=== PATIENT | male | born 1935 | race Caucasian/White ===

== ENCOUNTER 2017-07-21 11:44 | Inpatient (IN) | payer MEDICARE, OTHER ==
[~2017-07-21] VITALS: Ht 177.8 cm; Wt 68.0 kg
[2017-07-21 12:45] VITALS: BP 136/70; BMI 21.5
[2017-07-21] MEDS ORDERED: FUROSEMIDE20 MG PO (13:59)
[2017-07-21] MEDS ORDERED: LOPRESSOR25 MG PO (14:03)
[2017-07-21] MEDS ORDERED: PULMICORT0.5 MG/21 INH (14:08)
[2017-07-21] MEDS ORDERED: BROVANA15 MCG/2 M INH (14:09)
[2017-07-21] MEDS ORDERED: IPRAT-ALBUT 0.5-3 ML UPD (14:09)
[2017-07-21 14:12] LABS: BASOPHILS 0.1 % (0-2); EOSINOPHILS 0.4 % (0-7); HEMATOCRIT 30.6 % (42.0-54.0); HEMOGLOBIN 8.9 g/dL (13.5-17.5); IMMATURE GRANULOCYTES 1.2 % (0-5); LYMPHOCYTES 7.5 % (15-50); MCH 22.5 pg (26.0-34.0); MCHC 29.1 g/dL (31.0-37.0); MCV 77.5 fL (80.0-100.0); MEAN PLATELET VOLUME 10.7 fL (7.4-10.4); MONOCYTES 5.1 % (2-11); NEUTROPHILS 85.7 % (40-80); PLATELET COUNT 192 10x3/uL (130-400); RBC 3.95 10x6/uL (4.20-6.10); RDW 16.6 % (11.5-14.5); WBC 12.1 10x3/uL (4.8-10.8)
[2017-07-21 14:30] LABS: ALBUMIN 2.3 g/dL (3.4-5.0); ALKALINE PHOSPHATASE 51 U/L (46-116); ALT (SGPT) 21 U/L (10-68); BILIRUBIN - TOTAL 0.37 mg/dL (0.2-1.3); CALC OSMOLALITY 278 mosm/kg (275-300); CALCIUM 8.2 mg/dL (8.5-10.1); CARBON DIOXIDE 25.9 mmol/L (21.0-32.0); CHLORIDE - SERUM 106 mmol/L (98-107); CREATININE - SERUM 0.9 mg/dL (0.6-1.3); GLUCOSE 98 mg/dL (74-106); POTASSIUM - SERUM 3.4 mmol/L (3.5-5.1); PROTEIN - SERUM 5.5 g/dL (6.4-8.2); SODIUM 139 mmol/L (136-145); UREA NITROGEN 14 mg/dL (7-18); eGFR NON AFRICAN AMERICAN 86 mL/min (90-120)
[2017-07-21 16:30] VITALS: BP 136/73
[2017-07-21 19:37] LABS: APPEARANCE CLEAR (CLEAR); BILIRUBIN NEGATIVE (NEGATIVE); COLOR YELLOW (YELLOW); GLUCOSE NEGATIVE (NEGATIVE); KETONE NEGATIVE (NEGATIVE); NITRITE NEGATIVE (NEGATIVE); PROTEIN NEGATIVE (NEGATIVE); UROBILINOGEN NORMAL (NORMAL)
[2017-07-21 19:39] LABS: BACTERIA FEW /hpf (NONE SEEN); RED CELLS - URINE OCC /hpf (0-5)
[2017-07-21 23:18] VITALS: BP 109/67
[2017-07-22 02:11] VITALS: BP 102/64
[2017-07-22 04:56] VITALS: BP 124/77
[2017-07-22 05:51] LABS: BASOPHILS 0.1 % (0-2); EOSINOPHILS 0 % (0-7); HEMATOCRIT 27.9 % (42.0-54.0); HEMOGLOBIN 8.3 g/dL (13.5-17.5); IMMATURE GRANULOCYTES 1.2 % (0-5); LYMPHOCYTES 3.1 % (15-50); MCH 22.7 pg (26.0-34.0); MCHC 29.7 g/dL (31.0-37.0); MCV 76.4 fL (80.0-100.0); MEAN PLATELET VOLUME 10.5 fL (7.4-10.4); MONOCYTES 0.8 % (2-11); NEUTROPHILS 94.8 % (40-80); PLATELET COUNT 168 10x3/uL (130-400); RBC 3.65 10x6/uL (4.20-6.10); RDW 16.7 % (11.5-14.5); WBC 9.7 10x3/uL (4.8-10.8)
[2017-07-22 06:17] LABS: ALBUMIN 2.2 g/dL (3.4-5.0); ALKALINE PHOSPHATASE 49 U/L (46-116); BILIRUBIN - TOTAL 0.42 mg/dL (0.2-1.3); CALCIUM 8.3 mg/dL (8.5-10.1); CARBON DIOXIDE 25.6 mmol/L (21.0-32.0); CHLORIDE - SERUM 107 mmol/L (98-107); CREATININE - SERUM 0.7 mg/dL (0.6-1.3); MAGNESIUM - SERUM 1.9 mg/dL (1.8-2.4); PHOSPHOROUS 3.8 mg/dL (2.5-4.9); POTASSIUM - SERUM 3.8 mmol/L (3.5-5.1); PROTEIN - SERUM 5.5 g/dL (6.4-8.2); SODIUM 140 mmol/L (136-145); UREA NITROGEN 13 mg/dL (7-18); eGFR NON AFRICAN AMERICAN > 90 mL/min (90-120)
[2017-07-22 06:19] LABS: ALT (SGPT) 41 U/L (10-68); CALC OSMOLALITY 282 mosm/kg (275-300); GLUCOSE 172 mg/dL (74-106)
[2017-07-22 09:24] VITALS: BP 133/75
[2017-07-22 11:16] VITALS: BMI 21.5
[2017-07-22 12:48] VITALS: BP 130/72
[2017-07-22 16:10] VITALS: BP 150/73
[2017-07-22 22:20] VITALS: BP 155/72
[2017-07-23 01:15] VITALS: BP 146/85
[2017-07-23 05:05] VITALS: BP 149/75
[2017-07-23 07:32] LABS: BASOPHILS 0.1 % (0-2); EOSINOPHILS 0 % (0-7); HEMATOCRIT 28.7 % (42.0-54.0); HEMOGLOBIN 8.5 g/dL (13.5-17.5); IMMATURE GRANULOCYTES 0.6 % (0-5); LYMPHOCYTES 1.7 % (15-50); MCH 22.8 pg (26.0-34.0); MCHC 29.6 g/dL (31.0-37.0); MCV 76.9 fL (80.0-100.0); MONOCYTES 2.6 % (2-11); PLATELET COUNT 167 10x3/uL (130-400); RBC 3.73 10x6/uL (4.20-6.10); RDW 18.1 % (11.5-14.5)
[2017-07-23 07:39] LABS: WBC 15.6 10x3/uL (4.8-10.8)
[2017-07-23 07:45] LABS: ALBUMIN 2.3 g/dL (3.4-5.0); ALKALINE PHOSPHATASE 52 U/L (46-116); BILIRUBIN - TOTAL 0.45 mg/dL (0.2-1.3); CALC OSMOLALITY 285 mosm/kg (275-300); CALCIUM 8.3 mg/dL (8.5-10.1); CARBON DIOXIDE 23.4 mmol/L (21.0-32.0); CHLORIDE - SERUM 110 mmol/L (98-107); CREATININE - SERUM 0.7 mg/dL (0.6-1.3); GLUCOSE 163 mg/dL (74-106); PROTEIN - SERUM 5.2 g/dL (6.4-8.2); SODIUM 142 mmol/L (136-145); UREA NITROGEN 11 mg/dL (7-18); eGFR NON AFRICAN AMERICAN > 90 mL/min (90-120)
[2017-07-23 07:53] LABS: ALT (SGPT) 54 U/L (10-68); POTASSIUM - SERUM 3.2 mmol/L (3.5-5.1)
[2017-07-23 07:56] VITALS: BP 148/82
[2017-07-23 12:01] VITALS: BP 147/81
[2017-07-23 14:09] LABS: IMMUNOGLOBULIN A 59 mg/dL (61-437); IMMUNOGLOBULIN G 626 mg/dL (700-1600)
[2017-07-23 16:22] VITALS: BP 134/83
[2017-07-23 18:09] LABS: APPEARANCE CLEAR (CLEAR); BILIRUBIN NEGATIVE (NEGATIVE); COLOR STRAW (YELLOW); GLUCOSE NEGATIVE (NEGATIVE); KETONE NEGATIVE (NEGATIVE); NITRITE NEGATIVE (NEGATIVE); PH 6.5 (5.0-6.0); PROTEIN NEGATIVE (NEGATIVE); SPECIFIC GRAVITY 1.005 (1.005-1.020); UROBILINOGEN NORMAL (NORMAL)
[2017-07-23 18:11] LABS: BACTERIA FEW /hpf (NONE SEEN); EPITHELIAL CELLS RARE /hpf (0-5); RED CELLS - URINE OCC /hpf (0-5); WHITE CELLS - URINE 0-5 /hpf (0-5)
[2017-07-23 22:26] VITALS: BP 142/74
[2017-07-24 01:39] VITALS: BP 157/93
[2017-07-24 05:18] LABS: BASOPHILS 0.1 % (0-2); EOSINOPHILS 0 % (0-7); HEMATOCRIT 28.7 % (42.0-54.0); HEMOGLOBIN 8.4 g/dL (13.5-17.5); IMMATURE GRANULOCYTES 3.3 % (0-5); LYMPHOCYTES 5.2 % (15-50); MCH 22.8 pg (26.0-34.0); MCHC 29.3 g/dL (31.0-37.0); MEAN PLATELET VOLUME 10.6 fL (7.4-10.4); MONOCYTES 6.3 % (2-11); NEUTROPHILS 85.1 % (40-80); PLATELET COUNT 169 10x3/uL (130-400); RBC 3.68 10x6/uL (4.20-6.10); RDW 19.1 % (11.5-14.5); WBC 12.2 10x3/uL (4.8-10.8)
[2017-07-24 05:25] LABS: ALBUMIN 2.2 g/dL (3.4-5.0); ALKALINE PHOSPHATASE 49 U/L (46-116); ALT (SGPT) 58 U/L (10-68); CALC OSMOLALITY 283 mosm/kg (275-300); CALCIUM 7.9 mg/dL (8.5-10.1); CARBON DIOXIDE 25.5 mmol/L (21.0-32.0); CHLORIDE - SERUM 110 mmol/L (98-107); CREATININE - SERUM 0.8 mg/dL (0.6-1.3); POTASSIUM - SERUM 3.1 mmol/L (3.5-5.1); PROTEIN - SERUM 5.3 g/dL (6.4-8.2); SODIUM 143 mmol/L (136-145); UREA NITROGEN 11 mg/dL (7-18); eGFR NON AFRICAN AMERICAN > 90 mL/min (90-120)
[2017-07-24 05:36] LABS: GLUCOSE 90 mg/dL (74-106)
[2017-07-24 08:37] VITALS: BP 142/75
[2017-07-24 11:47] VITALS: BP 128/76
[2017-07-24 15:47] VITALS: Ht 177.8 cm; Wt 68.0 kg
[2017-07-24 15:50] VITALS: BP 122/78
[2017-07-24 22:21] VITALS: BP 130/75
[2017-07-25 00:56] VITALS: BP 134/74
[2017-07-25 05:20] VITALS: BP 153/66
[2017-07-25 05:58] LABS: BASOPHILS 0.1 % (0-2); EOSINOPHILS 0 % (0-7); HEMATOCRIT 29.1 % (42.0-54.0); HEMOGLOBIN 8.5 g/dL (13.5-17.5); IMMATURE GRANULOCYTES 5.1 % (0-5); LYMPHOCYTES 11.1 % (15-50); MCH 23.2 pg (26.0-34.0); MCHC 29.2 g/dL (31.0-37.0); MCV 79.5 fL (80.0-100.0); MEAN PLATELET VOLUME 10.6 fL (7.4-10.4); MONOCYTES 8.8 % (2-11); NEUTROPHILS 74.9 % (40-80); PLATELET COUNT 138 10x3/uL (130-400); RBC 3.66 10x6/uL (4.20-6.10); RDW 19.5 % (11.5-14.5)
[2017-07-25 06:04] LABS: WBC 7.9 10x3/uL (4.8-10.8)
[2017-07-25 06:27] LABS: ALBUMIN 2.2 g/dL (3.4-5.0); ALKALINE PHOSPHATASE 48 U/L (46-116); ALT (SGPT) 46 U/L (10-68); BILIRUBIN - TOTAL 0.55 mg/dL (0.2-1.3); CALC OSMOLALITY 285 mosm/kg (275-300); CALCIUM 8.3 mg/dL (8.5-10.1); CARBON DIOXIDE 28.5 mmol/L (21.0-32.0); CHLORIDE - SERUM 110 mmol/L (98-107); CREATININE - SERUM 0.8 mg/dL (0.6-1.3); GLUCOSE 87 mg/dL (74-106); POTASSIUM - SERUM 3.4 mmol/L (3.5-5.1); PROTEIN - SERUM 5.3 g/dL (6.4-8.2); SODIUM 144 mmol/L (136-145); UREA NITROGEN 12 mg/dL (7-18); eGFR NON AFRICAN AMERICAN > 90 mL/min (90-120)
[2017-07-25 08:59] VITALS: BP 101/65
[2017-07-25 17:13] VITALS: BP 123/78
[2017-07-25 22:12] VITALS: BP 112/62
[2017-07-26 01:36] VITALS: BP 116/64
[2017-07-26 04:37] LABS: BASOPHILS 0.1 % (0-2); EOSINOPHILS 0.1 % (0-7); HEMATOCRIT 30.7 % (42.0-54.0); IMMATURE GRANULOCYTES 3.6 % (0-5); LYMPHOCYTES 7.8 % (15-50); MCH 23.4 pg (26.0-34.0); MCHC 29.3 g/dL (31.0-37.0); MCV 79.9 fL (80.0-100.0); MEAN PLATELET VOLUME 10.9 fL (7.4-10.4); MONOCYTES 7.8 % (2-11); NEUTROPHILS 80.6 % (40-80); PLATELET COUNT 137 10x3/uL (130-400); RBC 3.84 10x6/uL (4.20-6.10); RDW 20.5 % (11.5-14.5); WBC 7.3 10x3/uL (4.8-10.8)
[2017-07-26 04:46] VITALS: BP 141/73
[2017-07-26 04:56] LABS: ALBUMIN 2.2 g/dL (3.4-5.0); ALKALINE PHOSPHATASE 54 U/L (46-116); ALT (SGPT) 40 U/L (10-68); CALC OSMOLALITY 278 mosm/kg (275-300); CALCIUM 8.3 mg/dL (8.5-10.1); CHLORIDE - SERUM 106 mmol/L (98-107); CREATININE - SERUM 0.7 mg/dL (0.6-1.3); GLUCOSE 94 mg/dL (74-106); POTASSIUM - SERUM 3.5 mmol/L (3.5-5.1); PROTEIN - SERUM 5.4 g/dL (6.4-8.2); SODIUM 140 mmol/L (136-145); UREA NITROGEN 13 mg/dL (7-18); eGFR NON AFRICAN AMERICAN > 90 mL/min (90-120)
[2017-07-26 10:33] VITALS: BP 130/70
[2017-07-26 11:35] VITALS: BP 136/74
[2017-07-26 16:18] VITALS: BP 144/57
[2017-07-26 23:49] VITALS: BP 121/69
[2017-07-27 05:25] VITALS: BP 142/78
[2017-07-27 09:15] LABS: BASOPHILS 0.1 % (0-2); EOSINOPHILS 0.2 % (0-7); HEMATOCRIT 32.8 % (42.0-54.0); HEMOGLOBIN 9.7 g/dL (13.5-17.5); IMMATURE GRANULOCYTES 1.7 % (0-5); LYMPHOCYTES 5.9 % (15-50); MCH 23.8 pg (26.0-34.0); MCHC 29.6 g/dL (31.0-37.0); MCV 80.4 fL (80.0-100.0); MEAN PLATELET VOLUME 10.6 fL (7.4-10.4); MONOCYTES 4.9 % (2-11); NEUTROPHILS 87.2 % (40-80); PLATELET COUNT 114 10x3/uL (130-400); RBC 4.08 10x6/uL (4.20-6.10); RDW 22.1 % (11.5-14.5); WBC 8.9 10x3/uL (4.8-10.8)
[2017-07-27 09:27] VITALS: BP 120/90
[2017-07-27 09:32] LABS: ALBUMIN 2.4 g/dL (3.4-5.0); ALKALINE PHOSPHATASE 52 U/L (46-116); ALT (SGPT) 37 U/L (10-68); CALC OSMOLALITY 282 mosm/kg (275-300); CHLORIDE - SERUM 107 mmol/L (98-107); CREATININE - SERUM 0.7 mg/dL (0.6-1.3); GLUCOSE 94 mg/dL (74-106); PROTEIN - SERUM 5.5 g/dL (6.4-8.2); SODIUM 142 mmol/L (136-145); UREA NITROGEN 12 mg/dL (7-18); eGFR NON AFRICAN AMERICAN > 90 mL/min (90-120)
[2017-07-27 10:10] LABS: POTASSIUM - SERUM 2.8 mmol/L (3.5-5.1)
[2017-07-27 11:34] VITALS: BP 120/78
[2017-07-27 12:26] VITALS: BP 120/78
[2017-07-27 15:42] VITALS: BP 118/67
[2017-07-27 21:08] LABS: IMMUNOGLOBULIN E 26 IU/mL (0-100)
[2017-07-27 23:10] VITALS: BP 109/67
[2017-07-28 02:43] VITALS: BP 138/80
[2017-07-28 05:13] VITALS: BP 131/79
[2017-07-28 05:17] LABS: BASOPHILS 0 % (0-2); EOSINOPHILS 0 % (0-7); HEMATOCRIT 32.6 % (42.0-54.0); HEMOGLOBIN 9.8 g/dL (13.5-17.5); IMMATURE GRANULOCYTES 1.6 % (0-5); LYMPHOCYTES 5.7 % (15-50); MCHC 30.1 g/dL (31.0-37.0); MCV 79.9 fL (80.0-100.0); MEAN PLATELET VOLUME 10.8 fL (7.4-10.4); MONOCYTES 5.6 % (2-11); NEUTROPHILS 87.1 % (40-80); PLATELET COUNT 136 10x3/uL (130-400); RBC 4.08 10x6/uL (4.20-6.10); RDW 22.5 % (11.5-14.5); WBC 7.6 10x3/uL (4.8-10.8)
[2017-07-28 05:54] LABS: ALBUMIN 2.4 g/dL (3.4-5.0); ALKALINE PHOSPHATASE 50 U/L (46-116); ALT (SGPT) 33 U/L (10-68); CALC OSMOLALITY 279 mosm/kg (275-300); CARBON DIOXIDE 24.7 mmol/L (21.0-32.0); CHLORIDE - SERUM 107 mmol/L (98-107); CREATININE - SERUM 0.6 mg/dL (0.6-1.3); GLUCOSE 95 mg/dL (74-106); PROTEIN - SERUM 5.5 g/dL (6.4-8.2); SODIUM 141 mmol/L (136-145); UREA NITROGEN 11 mg/dL (7-18); eGFR NON AFRICAN AMERICAN > 90 mL/min (90-120)
[2017-07-28 05:59] LABS: POTASSIUM - SERUM 3.3 mmol/L (3.5-5.1)
[2017-07-28 10:02] VITALS: BP 141/69
[2017-07-28] MEDS ORDERED: FLOMAX0.4 MG PO (10:35)
[2017-07-28] MEDS ORDERED: MEGACE40 MG PO (10:35)
[2017-07-28] MEDS ORDERED: ALBUTEROL2.5 MG/3 M UPD (10:35)
[2017-07-28] MEDS ORDERED: K-DUR20 MEQ PO (10:37)
[2017-07-28] MEDS ORDERED: BENZONATATE200 MG PO (10:37)
[2017-07-28] MEDS ORDERED: DALIRESP500 MCG PO (10:37)
[2017-07-28] MEDS ORDERED: MUCINEX DM ER1 EAC1 PO (10:38)
[2017-07-28] MEDS ORDERED: SINGULAIR10 MG PO (10:38)
[2017-07-28] MEDS ORDERED: REGLAN INJ10 MG/2 ML PO (10:39)
[2017-07-28] MEDS ORDERED: PREDNISONE20 MG PO (10:41)
[2017-07-28] MEDS ORDERED: MIRALAX17 GM PO (10:41)
[2017-07-28] MEDS ORDERED: PROSCAR5 MG PO (10:42)
[2017-07-28] MEDS ORDERED: VITAMIN B-1000 MCG/M PO (10:42)
[2017-07-28 12:39] VITALS: BP 146/64
[2017-07-28 16:30] VITALS: BP 129/78
== END 2017-07-28 17:47 | DRG 190 ==
LOC: D.MS 11:44
PROVIDERS: Internal Medicine Pulmonary Disease; Legal Medicine
DX: J44.0 Chronic obstructive pulmonary disease with (acute) lower respiratory infection (principal); J10.00 Influenza due to other identified influenza virus with unspecified type of pneumonia; N13.8 Other obstructive and reflux uropathy; N39.0 Urinary tract infection, site not specified; K92.1 Melena; J98.11 Atelectasis; J44.1 Chronic obstructive pulmonary disease with (acute) exacerbation; I25.10 Atherosclerotic heart disease of native coronary artery without angina pectoris; D50.9 Iron deficiency anemia, unspecified; N40.1 Benign prostatic hyperplasia with lower urinary tract symptoms; J84.10 Pulmonary fibrosis, unspecified; K44.9 Diaphragmatic hernia without obstruction or gangrene; G47.33 Obstructive sleep apnea (adult) (pediatric); E87.6 Hypokalemia; B96.5 Pseudomonas (aeruginosa) (mallei) (pseudomallei) as the cause of diseases classified elsewhere; E88.09 Other disorders of plasma-protein metabolism, not elsewhere classified; G72.89 Other specified myopathies

== ENCOUNTER 2017-07-28 19:22 | Inpatient (IN) | payer MEDICARE, OTHER ==
[~2017-07-28] VITALS: Ht 177.8 cm; Wt 62.0 kg
--- NOTE | ~2017-07-28 | RHP ---
PATIENT: DIANA SOLARES MEDICAL RECORD: [id number] ACCOUNT: [id number] LOCATION:[facility].[id number] : 37 ADMISSION DATE: 07/28/17 REHABILITATION HISTORY AND PHYSICAL EXAMINATION POST ADMISSION PHYSICIAN EXAMINATION DATE OF ADMISSION: 07/28/2017. ADMITTING DIAGNOSIS: Disuse myopathy. HISTORY OF PRESENT ILLNESS: The patient is a 81-year-old gentleman who is admitted to the inpatient rehab with neurological disorder, disuse myopathy. He has got a history of iron-deficiency anemia and has received 2 dosages of IV iron this week on his acute admit, he was hospitalized week before prior to this with possible GIB. He was a direct admit from the clinic due to increased shortness of breath, increased flu exposure, and tested positive for flu A. Chest x-ray showed atelectasis or possible pneumonitis, pulmonary was consulted and has been followed through his acute hospital stay. He has CHF, coronary artery disease. He has had coronary artery bypass grafting, COPD, skin cancer, renal lithiasis, and TIA. He presented with shortness of breath, history of smoking, quit 25 years ago. He has got COPD for the last 3-4 years, he has been hospitalized last 3-4 months on and off since March secondary to bronchitis or pneumonia. He came in with a 1-week history of progressive shortness of breath, fever, chills. The patient has increased wheezing despite being on nebulizer, dyspnea on activity, and unable to do activities of daily living. He was having some urinary retention, been seen by the urology and has treating his BPH with medication. 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 He has a surgery consult for hiatal hernia, but decided to be addressed at a later date. CT of his abdomen and pelvis on 07/23/2017 showed bilateral nonobstructing renal stones, large prostate, left inguinal hernia, left hydrocele. Chest x-ray shows right lower lobe pneumonia. He had come in and out for catheterization. He is noted to have resistance in the prostate region. His PVR was greater than 400 mL. He has developed some diffuse myopathy secondary to hospitalization. He has proximal muscle weakness noted with difficulty rising from bed to chair. Currently, he was independent with his mobility, ADLs and was still driving prior to this recent hospitalization. He is currently set up from max assist with ADLs, moderate to max assist to total assist for mobility and he and his son would like to have him return home. COMORBIDITIES: In this patient include coronary artery disease, COPD, anemia, hypokalemia, hypoalbuminemia, leukocytosis, influenza, benign prostatic hypertrophy, disuse myopathy, gastroesophageal reflux disease, right lower lobe pneumonia, bronchiectasis, history of CHF, markedly enlarged hiatal hernia, probable obstructive sleep apnea, history of TIA, and difficulty urinating. PAST MEDICAL HISTORY: Significant for TIA, cataract, coronary artery bypass grafting, CHF, COPD, skin cancer, constipation, former tobacco use. PAST SURGICAL HISTORY: Includes coronary bypass grafting and surgery for renal stones. ALLERGIES: No known drug allergies. CURRENT MEDICATIONS: Include Megace 40 mg b.i.d. with meals. He is on Daliresp 500 mcg daily, prednisone he is on a tapering dose, Lasix 20 mg daily, HISTORY AND PHYSICAL [id number] DIANA SOLARES finasteride 5 mg daily, B12 1000 mcg daily, Flomax 0.4 mg at bedtime, MiraLax 17 grams in 8 ounces of water daily, Singulair 10 mg at bedtime, metoprolol 37 mg b.i.d. metoclopramide 5 mg q.6 hours, DuoNeb updrafts as needed, Pulmicort 0.5 mg b.i.d., Tessalon Perles 200 mg t.i.d. p.r.n., Brovana 15 mcg b.i.d., and Ventolin as needed for shortness of breath. HABITS: No current alcohol or tobacco use, quit smoking years ago. FAMILY HISTORY: Noncontributory. SOCIAL HISTORY: The patient hopes to return back to [facility], continue to live and have family members check in on him. REVIEW OF SYSTEMS: GENERAL: He does complain of weakness and fatigue. HEENT: He denies cold, cough, or congestion. CARDIOVASCULAR: He denies chest pain. LUNGS: He does complain of shortness of breath. PHYSICAL EXAMINATION: VITAL SIGNS: Stable, afebrile. GENERAL: Elderly gentleman in no acute distress, alert upon exam. HEENT: Normocephalic and atraumatic. Mucosa moist. NECK: Supple. No lymphadenopathy. LUNGS: Coarse breath sounds bilaterally with decreased breath sounds at the bases. CARDIOVASCULAR: Regular rate and rhythm. ABDOMEN: Benign. EXTREMITIES: No clubbing, cyanosis, or edema. NEUROLOGIC: Intact. LABORATORY DATA: His white count 6.9, H&H 9.9 and 32.7, and platelet count is 140. Sodium 139, potassium 3.4, BUN and creatinine of 14 and 0.6, and blood sugar is noted to be 93. ASSESSMENT: This is a 81-year-old gentleman admitted to the rehab with a working diagnosis of disuse myopathy. The patient has potential to make improvement. We instituted the following multidisciplinary therapies including to, but not limited to physical, occupational, respiratory, speech, nutritional services, prosthetics and orthotics. Given his complex condition and risk for more complications, rehabilitation service services cannot be provided at a lower level of care such as a long term facility. PLAN: 1. Admit to [facility] rehab for intensive inpatient therapy to include the following disciplines: A. Physical therapy to improve gait, all transfer skills and bed mobility to a modified independent level. B. Occupational therapy to improve activities of daily living to a modified independent level. C. Case management to assist with discharge planning and placement options. D. Nutrition to assist with nutritional needs. E. Rehabilitation nursing to assist and monitor the patient's underlying medical conditions and to assist with any type of bowel or bladder management. 2. The patient's current medical care will be continued. HISTORY AND PHYSICAL [id number] DIANA SOLARES 3. The patient will be placed on standard fall precautions. 4. The patient's estimated length of stay is approximately 7-10 days. 5. Discuss this patient during care team staff meeting this week. TRANSINT:[id number] Voice Confirmation ID: [id number] DOCUMENT ID: [id number] BASILIO notes whether there has been none or any medical/functional change since admission: - No change since preadmissino screen. BASILIO attests patient continues to be appropriate for IRF: - Continues to be appropriate. LUCA PUGH MD CC: [id number] DICTATION DATE: 07/29/171211 FUEL INJECTION SERVICER: 07/29/[address] [facility] [address] [place] [address]
[2017-07-28 19:00] VITALS: BP 134/78
[~2017-07-28 19:22] MED LIST: ALBUTEROL2.5 MG/3 M UPD; BENZONATATE200 MG PO; BROVANA15 MCG/2 M INH; DALIRESP500 MCG PO; FLOMAX0.4 MG PO; FUROSEMIDE20 MG PO; IPRAT-ALBUT 0.5-3 ML UPD; K-DUR20 MEQ PO; LOPRESSOR25 MG PO; MEGACE40 MG PO; MIRALAX17 GM PO; MUCINEX DM ER1 EAC1 PO; PREDNISONE20 MG PO; PROSCAR5 MG PO; PULMICORT0.5 MG/21 INH; REGLAN INJ10 MG/2 ML PO; SINGULAIR10 MG PO; VITAMIN B-1000 MCG/M PO
[2017-07-29 02:34] VITALS: BP 134/78; BMI 22.5
[2017-07-29 06:22] LABS: BASOPHILS 0 % (0-2); EOSINOPHILS 0.1 % (0-7); HEMATOCRIT 32.7 % (42.0-54.0); HEMOGLOBIN 9.9 g/dL (13.5-17.5); IMMATURE GRANULOCYTES 1.6 % (0-5); LYMPHOCYTES 6.8 % (15-50); MCH 24.2 pg (26.0-34.0); MCHC 30.3 g/dL (31.0-37.0); MEAN PLATELET VOLUME 10.7 fL (7.4-10.4); MONOCYTES 6.7 % (2-11); NEUTROPHILS 84.8 % (40-80); PLATELET COUNT 140 10x3/uL (130-400); RBC 4.09 10x6/uL (4.20-6.10); RDW 23.2 % (11.5-14.5); WBC 6.9 10x3/uL (4.8-10.8)
[2017-07-29 06:38] LABS: ALBUMIN 2.4 g/dL (3.4-5.0); ALKALINE PHOSPHATASE 45 U/L (46-116); ALT (SGPT) 33 U/L (10-68); BILIRUBIN - TOTAL 0.57 mg/dL (0.2-1.3); CALC OSMOLALITY 278 mosm/kg (275-300); CALCIUM 8.3 mg/dL (8.5-10.1); CARBON DIOXIDE 24.8 mmol/L (21.0-32.0); CHLORIDE - SERUM 105 mmol/L (98-107); CREATININE - SERUM 0.6 mg/dL (0.6-1.3); GLUCOSE 93 mg/dL (74-106); POTASSIUM - SERUM 3.4 mmol/L (3.5-5.1); PROTEIN - SERUM 5.9 g/dL (6.4-8.2); SODIUM 139 mmol/L (136-145); UREA NITROGEN 14 mg/dL (7-18); eGFR NON AFRICAN AMERICAN > 90 mL/min (90-120)
[2017-07-29 08:00] VITALS: BP 141/102
[2017-07-29 14:15] VITALS: Ht 177.8 cm; Wt 62.0 kg
[2017-07-29 19:35] VITALS: BP 129/81
[2017-07-30 09:14] VITALS: BP 134/75
[2017-07-30 20:00] VITALS: BP 137/82
[2017-07-31 03:24] LABS: BASOPHILS 0 % (0-2); EOSINOPHILS 0.4 % (0-7); HEMATOCRIT 34.5 % (42.0-54.0); HEMOGLOBIN 10.5 g/dL (13.5-17.5); IMMATURE GRANULOCYTES 1.3 % (0-5); LYMPHOCYTES 7.2 % (15-50); MCH 24.5 pg (26.0-34.0); MCHC 30.4 g/dL (31.0-37.0); MCV 80.6 fL (80.0-100.0); MEAN PLATELET VOLUME 10.4 fL (7.4-10.4); MONOCYTES 7.4 % (2-11); NEUTROPHILS 83.7 % (40-80); PLATELET COUNT 165 10x3/uL (130-400); RBC 4.28 10x6/uL (4.20-6.10); RDW 23.1 % (11.5-14.5); WBC 8.3 10x3/uL (4.8-10.8)
[2017-07-31 03:32] LABS: CALC OSMOLALITY 274 mosm/kg (275-300); CALCIUM 8.3 mg/dL (8.5-10.1); CARBON DIOXIDE 27.4 mmol/L (21.0-32.0); CHLORIDE - SERUM 103 mmol/L (98-107); CREATININE - SERUM 0.7 mg/dL (0.6-1.3); GLUCOSE 103 mg/dL (74-106); POTASSIUM - SERUM 3.1 mmol/L (3.5-5.1); SODIUM 137 mmol/L (136-145); UREA NITROGEN 16 mg/dL (7-18); eGFR NON AFRICAN AMERICAN > 90 mL/min (90-120)
[2017-07-31 08:00] VITALS: BP 132/61
[2017-07-31 09:04] LABS: PRE-ALBUMIN 23.8 mg/dL (18.0-35.7); PROTEIN - SERUM 5.8 g/dL (6.4-8.2)
[2017-07-31 20:00] VITALS: BP 132/75
[2017-08-01 08:00] VITALS: BP 137/73
[2017-08-01 19:45] VITALS: BP 130/76
[2017-08-02 05:53] LABS: BASOPHILS 0 % (0-2); EOSINOPHILS 0.1 % (0-7); HEMATOCRIT 34.8 % (42.0-54.0); HEMOGLOBIN 10.4 g/dL (13.5-17.5); IMMATURE GRANULOCYTES 1.7 % (0-5); LYMPHOCYTES 8.2 % (15-50); MCH 24.2 pg (26.0-34.0); MCHC 29.9 g/dL (31.0-37.0); MCV 80.9 fL (80.0-100.0); MEAN PLATELET VOLUME 10.8 fL (7.4-10.4); MONOCYTES 9.3 % (2-11); NEUTROPHILS 80.7 % (40-80); PLATELET COUNT 194 10x3/uL (130-400); RDW 24.1 % (11.5-14.5); WBC 7.8 10x3/uL (4.8-10.8)
[2017-08-02 06:19] LABS: CALC OSMOLALITY 279 mosm/kg (275-300); CALCIUM 8.6 mg/dL (8.5-10.1); CARBON DIOXIDE 25.8 mmol/L (21.0-32.0); CHLORIDE - SERUM 105 mmol/L (98-107); CREATININE - SERUM 0.8 mg/dL (0.6-1.3); GLUCOSE 97 mg/dL (74-106); SODIUM 140 mmol/L (136-145); UREA NITROGEN 16 mg/dL (7-18); eGFR NON AFRICAN AMERICAN > 90 mL/min (90-120)
[2017-08-02 08:34] VITALS: BP 121/73
[2017-08-02 20:30] VITALS: BP 133/79
[2017-08-03 08:00] VITALS: BP 122/71
[2017-08-03 21:16] VITALS: BP 120/68
[2017-08-04 08:34] VITALS: BP 113/65
[2017-08-04 11:26] LABS: BASOPHILS 0 % (0-2); EOSINOPHILS 0 % (0-7); HEMATOCRIT 35.8 % (42.0-54.0); HEMOGLOBIN 10.7 g/dL (13.5-17.5); IMMATURE GRANULOCYTES 0.9 % (0-5); LYMPHOCYTES 3.2 % (15-50); MCH 24.7 pg (26.0-34.0); MCHC 29.9 g/dL (31.0-37.0); MCV 82.5 fL (80.0-100.0); MEAN PLATELET VOLUME 10.5 fL (7.4-10.4); MONOCYTES 7.4 % (2-11); NEUTROPHILS 88.5 % (40-80); PLATELET COUNT 161 10x3/uL (130-400); RBC 4.34 10x6/uL (4.20-6.10)
[2017-08-04 11:32] LABS: WBC 10.5 10x3/uL (4.8-10.8)
[2017-08-04 11:33] LABS: CALC OSMOLALITY 289 mosm/kg (275-300); CALCIUM 8.7 mg/dL (8.5-10.1); CARBON DIOXIDE 25.9 mmol/L (21.0-32.0); CHLORIDE - SERUM 107 mmol/L (98-107); CREATININE - SERUM 0.9 mg/dL (0.6-1.3); POTASSIUM - SERUM 3.7 mmol/L (3.5-5.1); SODIUM 142 mmol/L (136-145); UREA NITROGEN 19 mg/dL (7-18); eGFR NON AFRICAN AMERICAN 86 mL/min (90-120)
[2017-08-04 11:34] LABS: GLUCOSE 184 mg/dL (74-106)
[2017-08-04 20:00] VITALS: BP 155/83
[2017-08-05 08:21] LABS: BASOPHILS 0.1 % (0-2); EOSINOPHILS 0 % (0-7); HEMOGLOBIN 11.5 g/dL (13.5-17.5); IMMATURE GRANULOCYTES 1.3 % (0-5); LYMPHOCYTES 6.9 % (15-50); MCH 24.8 pg (26.0-34.0); MCHC 30.3 g/dL (31.0-37.0); MCV 82.1 fL (80.0-100.0); MEAN PLATELET VOLUME 11.1 fL (7.4-10.4); MONOCYTES 7.6 % (2-11); NEUTROPHILS 84.1 % (40-80); PLATELET COUNT 133 10x3/uL (130-400); RBC 4.63 10x6/uL (4.20-6.10); RDW 25.4 % (11.5-14.5); WBC 10.8 10x3/uL (4.8-10.8)
[2017-08-05 08:38] LABS: CALC OSMOLALITY 285 mosm/kg (275-300); CALCIUM 8.9 mg/dL (8.5-10.1); CARBON DIOXIDE 25.1 mmol/L (21.0-32.0); CHLORIDE - SERUM 106 mmol/L (98-107); CREATININE - SERUM 0.7 mg/dL (0.6-1.3); GLUCOSE 108 mg/dL (74-106); POTASSIUM - SERUM 3.8 mmol/L (3.5-5.1); SODIUM 142 mmol/L (136-145); UREA NITROGEN 18 mg/dL (7-18); eGFR NON AFRICAN AMERICAN > 90 mL/min (90-120)
[2017-08-05 14:27] VITALS: BP 118/72
[2017-08-06 00:01] VITALS: BP 129/68
[2017-08-06 08:36] VITALS: BP 115/71
[2017-08-06] MEDS ORDERED: LOVENOX60 MG/0.6 SC (12:57)
== END 2017-08-06 13:32 | disposition short-term general hospital (02) | DRG 91 ==
LOC: D.REHAB 19:22
PROVIDERS: Emergency Medicine
DX: G72.89 Other specified myopathies (principal); J11.00 Influenza due to unidentified influenza virus with unspecified type of pneumonia; J96.21 Acute and chronic respiratory failure with hypoxia; J44.1 Chronic obstructive pulmonary disease with (acute) exacerbation; I25.10 Atherosclerotic heart disease of native coronary artery without angina pectoris; J44.9 Chronic obstructive pulmonary disease, unspecified; D50.9 Iron deficiency anemia, unspecified; E87.6 Hypokalemia; E88.09 Other disorders of plasma-protein metabolism, not elsewhere classified; D72.829 Elevated white blood cell count, unspecified; N40.0 Benign prostatic hyperplasia without lower urinary tract symptoms; K21.9 Gastro-esophageal reflux disease without esophagitis; G47.33 Obstructive sleep apnea (adult) (pediatric); K44.9 Diaphragmatic hernia without obstruction or gangrene; R39.198 Other difficulties with micturition; R00.0 Tachycardia, unspecified

== ENCOUNTER 2017-08-06 12:59 | Inpatient (IN) | payer MEDICARE, OTHER ==
[~2017-08-06 12:59] MED LIST changes: +LOVENOX60 MG/0.6 SC
[2017-08-06 15:00] LABS: ALBUMIN 2.6 g/dL (3.4-5.0); ALKALINE PHOSPHATASE 62 U/L (46-116); ALT (SGPT) 71 U/L (10-68); BASOPHILS 0.2 % (0-2); BILIRUBIN - TOTAL 0.66 mg/dL (0.2-1.3); CALCIUM 8.8 mg/dL (8.5-10.1); CARBON DIOXIDE 24.4 mmol/L (21.0-32.0); CHLORIDE - SERUM 107 mmol/L (98-107); CREATININE - SERUM 0.8 mg/dL (0.6-1.3); EOSINOPHILS 0.1 % (0-7); GLUCOSE 96 mg/dL (74-106); HEMATOCRIT 38.1 % (42.0-54.0); HEMOGLOBIN 11.3 g/dL (13.5-17.5); IMMATURE GRANULOCYTES 0.9 % (0-5); LYMPHOCYTES 6.4 % (15-50); MCH 24.5 pg (26.0-34.0); MCHC 29.7 g/dL (31.0-37.0); MCV 82.6 fL (80.0-100.0); MEAN PLATELET VOLUME 10.7 fL (7.4-10.4); MONOCYTES 6.4 % (2-11); PLATELET COUNT 110 10x3/uL (130-400); PROTEIN - SERUM 6.1 g/dL (6.4-8.2); RBC 4.61 10x6/uL (4.20-6.10); RDW 25.3 % (11.5-14.5); SODIUM 141 mmol/L (136-145); WBC 10.1 10x3/uL (4.8-10.8); eGFR NON AFRICAN AMERICAN > 90 mL/min (90-120)
[2017-08-06 15:06] LABS: CALC OSMOLALITY 284 mosm/kg (275-300); POTASSIUM - SERUM 4.4 mmol/L (3.5-5.1); UREA NITROGEN 23 mg/dL (7-18)
[2017-08-06 23:00] VITALS: BP 114/81
[2017-08-07] VITALS (25 sets, daily range): BP systolic 100–130; BP diastolic 68–88; BMI 20.2
[2017-08-07 03:40] LABS: BASOPHILS 0 % (0-2); EOSINOPHILS 0 % (0-7); HEMATOCRIT 33.5 % (42.0-54.0); HEMOGLOBIN 9.9 g/dL (13.5-17.5); IMMATURE GRANULOCYTES 0.8 % (0-5); LYMPHOCYTES 3.8 % (15-50); MCH 24.4 pg (26.0-34.0); MCHC 29.6 g/dL (31.0-37.0); MCV 82.5 fL (80.0-100.0); MEAN PLATELET VOLUME 11.5 fL (7.4-10.4); MONOCYTES 2.4 % (2-11); PLATELET COUNT 121 10x3/uL (130-400); RBC 4.06 10x6/uL (4.20-6.10); RDW 24.8 % (11.5-14.5); WBC 8.5 10x3/uL (4.8-10.8)
[2017-08-07 03:59] LABS: ALBUMIN 2.2 g/dL (3.4-5.0); ALKALINE PHOSPHATASE 49 U/L (46-116); ALT (SGPT) 57 U/L (10-68); BILIRUBIN - TOTAL 0.44 mg/dL (0.2-1.3); CALCIUM 8.4 mg/dL (8.5-10.1); CARBON DIOXIDE 25.2 mmol/L (21.0-32.0); CHLORIDE - SERUM 107 mmol/L (98-107); CREATININE - SERUM 0.7 mg/dL (0.6-1.3); MAGNESIUM - SERUM 1.8 mg/dL (1.8-2.4); PHOSPHOROUS 3.9 mg/dL (2.5-4.9); POTASSIUM - SERUM 4.5 mmol/L (3.5-5.1); PROTEIN - SERUM 5.9 g/dL (6.4-8.2); SODIUM 140 mmol/L (136-145); UREA NITROGEN 24 mg/dL (7-18); eGFR NON AFRICAN AMERICAN > 90 mL/min (90-120)
[2017-08-07 04:00] LABS: CALC OSMOLALITY 285 mosm/kg (275-300); GLUCOSE 155 mg/dL (74-106)
[2017-08-08] VITALS (24 sets, daily range): BP systolic 98–131; BP diastolic 65–83
[2017-08-08 11:26] LABS: HEMATOCRIT 31.8 % (42.0-54.0); HEMOGLOBIN 9.6 g/dL (13.5-17.5); LYMPHOCYTES 3.3 % (15-50); MCH 25.1 pg (26.0-34.0); MCHC 30.2 g/dL (31.0-37.0); MEAN PLATELET VOLUME 11.3 fL (7.4-10.4); PLATELET COUNT 97 10x3/uL (130-400); RBC 3.83 10x6/uL (4.20-6.10); RDW 24.2 % (11.5-14.5); WBC 9.2 10x3/uL (4.8-10.8)
[2017-08-08 11:42] LABS: CALC OSMOLALITY 293 mosm/kg (275-300); CALCIUM 8.2 mg/dL (8.5-10.1); CHLORIDE - SERUM 110 mmol/L (98-107); CREATININE - SERUM 0.6 mg/dL (0.6-1.3); GLUCOSE 154 mg/dL (74-106); POTASSIUM - SERUM 3.9 mmol/L (3.5-5.1); SODIUM 144 mmol/L (136-145); UREA NITROGEN 23 mg/dL (7-18); eGFR NON AFRICAN AMERICAN > 90 mL/min (90-120)
[2017-08-08 11:45] LABS: PLATELET ESTIMATE DECREASED
[2017-08-09] VITALS (18 sets, daily range): BP systolic 110–144; BP diastolic 67–90
[2017-08-09 04:34] LABS: BASOPHILS 0 % (0-2); EOSINOPHILS 0 % (0-7); HEMATOCRIT 33.3 % (42.0-54.0); HEMOGLOBIN 9.8 g/dL (13.5-17.5); IMMATURE GRANULOCYTES 1.5 % (0-5); LYMPHOCYTES 4.1 % (15-50); MCH 24.6 pg (26.0-34.0); MCHC 29.4 g/dL (31.0-37.0); MCV 83.7 fL (80.0-100.0); MONOCYTES 4.5 % (2-11); NEUTROPHILS 89.9 % (40-80); PLATELET COUNT 99 10x3/uL (130-400); RBC 3.98 10x6/uL (4.20-6.10); RDW 24.4 % (11.5-14.5); WBC 8.7 10x3/uL (4.8-10.8)
[2017-08-09 05:00] LABS: CALC OSMOLALITY 292 mosm/kg (275-300); CALCIUM 8.5 mg/dL (8.5-10.1); CARBON DIOXIDE 27.4 mmol/L (21.0-32.0); CHLORIDE - SERUM 108 mmol/L (98-107); GLUCOSE 127 mg/dL (74-106); POTASSIUM - SERUM 3.7 mmol/L (3.5-5.1); SODIUM 144 mmol/L (136-145); UREA NITROGEN 25 mg/dL (7-18)
[2017-08-09 05:01] LABS: CREATININE - SERUM 0.8 mg/dL (0.6-1.3); eGFR NON AFRICAN AMERICAN > 90 mL/min (90-120)
[2017-08-10 00:08] VITALS: BP 154/64
[2017-08-10 06:30] LABS: BASOPHILS 0.2 % (0-2); EOSINOPHILS 0 % (0-7); HEMATOCRIT 31.4 % (42.0-54.0); HEMOGLOBIN 9.3 g/dL (13.5-17.5); IMMATURE GRANULOCYTES 6.4 % (0-5); LYMPHOCYTES 6.8 % (15-50); MCH 24.7 pg (26.0-34.0); MCHC 29.6 g/dL (31.0-37.0); MCV 83.5 fL (80.0-100.0); MEAN PLATELET VOLUME 11.4 fL (7.4-10.4); MONOCYTES 7.3 % (2-11); NEUTROPHILS 79.3 % (40-80); PLATELET COUNT 111 10x3/uL (130-400); RBC 3.76 10x6/uL (4.20-6.10); RDW 24.5 % (11.5-14.5); WBC 8.9 10x3/uL (4.8-10.8)
[2017-08-10 07:00] LABS: CALC OSMOLALITY 289 mosm/kg (275-300); CARBON DIOXIDE 26.8 mmol/L (21.0-32.0); CHLORIDE - SERUM 108 mmol/L (98-107); GLUCOSE 91 mg/dL (74-106); POTASSIUM - SERUM 3.5 mmol/L (3.5-5.1); SODIUM 143 mmol/L (136-145); UREA NITROGEN 26 mg/dL (7-18)
[2017-08-10 07:06] LABS: CREATININE - SERUM 0.5 mg/dL (0.6-1.3); eGFR NON AFRICAN AMERICAN > 90 mL/min (90-120)
[2017-08-10 09:51] VITALS: BP 131/72
[2017-08-10 12:37] VITALS: BP 117/69
[2017-08-10 15:22] VITALS: BP 140/79
[2017-08-10 21:43] VITALS: BP 162/81
[2017-08-11 00:25] VITALS: BP 164/84
[2017-08-11 04:40] VITALS: BP 132/76
[2017-08-11 05:40] LABS: BASOPHILS 0.1 % (0-2); EOSINOPHILS 0 % (0-7); HEMOGLOBIN 9.2 g/dL (13.5-17.5); IMMATURE GRANULOCYTES 9.2 % (0-5); LYMPHOCYTES 5.9 % (15-50); MCH 24.7 pg (26.0-34.0); MCHC 29.7 g/dL (31.0-37.0); MCV 83.3 fL (80.0-100.0); MEAN PLATELET VOLUME 10.7 fL (7.4-10.4); MONOCYTES 8.6 % (2-11); NEUTROPHILS 76.2 % (40-80); PLATELET COUNT 109 10x3/uL (130-400); RBC 3.72 10x6/uL (4.20-6.10); RDW 24.3 % (11.5-14.5); WBC 8.5 10x3/uL (4.8-10.8)
[2017-08-11 06:08] LABS: CALC OSMOLALITY 284 mosm/kg (275-300); CALCIUM 8.2 mg/dL (8.5-10.1); CHLORIDE - SERUM 108 mmol/L (98-107); CREATININE - SERUM 0.5 mg/dL (0.6-1.3); GLUCOSE 123 mg/dL (74-106); POTASSIUM - SERUM 3.7 mmol/L (3.5-5.1); SODIUM 140 mmol/L (136-145); UREA NITROGEN 27 mg/dL (7-18); eGFR NON AFRICAN AMERICAN > 90 mL/min (90-120)
[2017-08-11 08:49] VITALS: BP 106/65
[2017-08-11 11:58] VITALS: BP 112/64
[2017-08-11 16:09] VITALS: BP 119/78
[2017-08-11 22:10] VITALS: BP 102/60
[2017-08-12 00:14] VITALS: BP 135/85
[2017-08-12 05:23] LABS: BASOPHILS 0.1 % (0-2); EOSINOPHILS 0.6 % (0-7); HEMATOCRIT 32.1 % (42.0-54.0); HEMOGLOBIN 9.5 g/dL (13.5-17.5); IMMATURE GRANULOCYTES 11.1 % (0-5); LYMPHOCYTES 7.1 % (15-50); MCH 24.5 pg (26.0-34.0); MCHC 29.6 g/dL (31.0-37.0); MCV 82.7 fL (80.0-100.0); MEAN PLATELET VOLUME 11.3 fL (7.4-10.4); MONOCYTES 5.1 % (2-11); PLATELET COUNT 116 10x3/uL (130-400); RBC 3.88 10x6/uL (4.20-6.10); RDW 25.1 % (11.5-14.5); WBC 8.8 10x3/uL (4.8-10.8)
[2017-08-12 05:32] LABS: CALC OSMOLALITY 284 mosm/kg (275-300); CALCIUM 7.8 mg/dL (8.5-10.1); CARBON DIOXIDE 28.6 mmol/L (21.0-32.0); CHLORIDE - SERUM 107 mmol/L (98-107); CREATININE - SERUM 0.5 mg/dL (0.6-1.3); GLUCOSE 97 mg/dL (74-106); POTASSIUM - SERUM 3.9 mmol/L (3.5-5.1); SODIUM 140 mmol/L (136-145); UREA NITROGEN 28 mg/dL (7-18); eGFR NON AFRICAN AMERICAN > 90 mL/min (90-120)
[2017-08-12 06:33] VITALS: BP 117/60
[2017-08-12 08:54] VITALS: BP 109/63
[2017-08-12 12:31] VITALS: BP 114/65
[2017-08-12 16:00] VITALS: BP 124/75
[2017-08-12 22:10] VITALS: BP 128/72
[2017-08-13 01:01] VITALS: BP 96/55
[2017-08-13 05:33] LABS: BASOPHILS 0.2 % (0-2); HEMATOCRIT 31.6 % (42.0-54.0); HEMOGLOBIN 9.5 g/dL (13.5-17.5); IMMATURE GRANULOCYTES 8.9 % (0-5); LYMPHOCYTES 5.8 % (15-50); MCH 24.8 pg (26.0-34.0); MCHC 30.1 g/dL (31.0-37.0); MCV 82.5 fL (80.0-100.0); MEAN PLATELET VOLUME 11.1 fL (7.4-10.4); MONOCYTES 5.5 % (2-11); NEUTROPHILS 78.6 % (40-80); PLATELET COUNT 119 10x3/uL (130-400); RBC 3.83 10x6/uL (4.20-6.10); RDW 25.1 % (11.5-14.5); WBC 8.2 10x3/uL (4.8-10.8)
[2017-08-13 05:36] LABS: CALC OSMOLALITY 279 mosm/kg (275-300); CALCIUM 7.7 mg/dL (8.5-10.1); CARBON DIOXIDE 26.5 mmol/L (21.0-32.0); CHLORIDE - SERUM 106 mmol/L (98-107); CREATININE - SERUM 0.5 mg/dL (0.6-1.3); GLUCOSE 101 mg/dL (74-106); POTASSIUM - SERUM 3.8 mmol/L (3.5-5.1); SODIUM 138 mmol/L (136-145); UREA NITROGEN 23 mg/dL (7-18); eGFR NON AFRICAN AMERICAN > 90 mL/min (90-120)
[2017-08-13 05:39] VITALS: BP 119/56
[2017-08-13 10:00] VITALS: BP 112/65
[2017-08-13 11:48] VITALS: BP 103/66
[2017-08-13 16:01] VITALS: BP 135/67
[2017-08-14 00:40] VITALS: BP 100/62
[2017-08-14 04:50] VITALS: BP 107/66
[2017-08-14 04:57] LABS: BASOPHILS 0.1 % (0-2); EOSINOPHILS 0.5 % (0-7); HEMATOCRIT 33.4 % (42.0-54.0); IMMATURE GRANULOCYTES 4.1 % (0-5); LYMPHOCYTES 5.3 % (15-50); MCH 24.7 pg (26.0-34.0); MCHC 29.9 g/dL (31.0-37.0); MCV 82.5 fL (80.0-100.0); MONOCYTES 4.3 % (2-11); NEUTROPHILS 85.7 % (40-80); PLATELET COUNT 135 10x3/uL (130-400); RBC 4.05 10x6/uL (4.20-6.10); WBC 8.9 10x3/uL (4.8-10.8)
[2017-08-14 05:20] LABS: ALBUMIN 1.9 g/dL (3.4-5.0); ALKALINE PHOSPHATASE 48 U/L (46-116); ALT (SGPT) 53 U/L (10-68); BILIRUBIN - TOTAL 0.64 mg/dL (0.2-1.3); CALC OSMOLALITY 279 mosm/kg (275-300); CALCIUM 8.3 mg/dL (8.5-10.1); CARBON DIOXIDE 27.2 mmol/L (21.0-32.0); CHLORIDE - SERUM 105 mmol/L (98-107); CREATININE - SERUM 0.6 mg/dL (0.6-1.3); GLUCOSE 107 mg/dL (74-106); POTASSIUM - SERUM 4.2 mmol/L (3.5-5.1); PROTEIN - SERUM 5.3 g/dL (6.4-8.2); SODIUM 138 mmol/L (136-145); UREA NITROGEN 25 mg/dL (7-18); eGFR NON AFRICAN AMERICAN > 90 mL/min (90-120)
[2017-08-14 08:14] VITALS: BP 118/59
[2017-08-14 11:22] VITALS: BP 116/74
[2017-08-14 20:00] VITALS: BP 97/68
[2017-08-15 04:00] VITALS: BP 129/74
[2017-08-15 05:32] LABS: BASOPHILS 0.1 % (0-2); EOSINOPHILS 0 % (0-7); HEMATOCRIT 29.4 % (42.0-54.0); HEMOGLOBIN 8.9 g/dL (13.5-17.5); IMMATURE GRANULOCYTES 1.9 % (0-5); LYMPHOCYTES 5.8 % (15-50); MCH 24.7 pg (26.0-34.0); MCHC 30.3 g/dL (31.0-37.0); MCV 81.7 fL (80.0-100.0); MEAN PLATELET VOLUME 11.4 fL (7.4-10.4); MONOCYTES 7.4 % (2-11); NEUTROPHILS 84.8 % (40-80); PLATELET COUNT 145 10x3/uL (130-400); RDW 24.6 % (11.5-14.5); WBC 8.2 10x3/uL (4.8-10.8)
[2017-08-15 05:46] LABS: ALBUMIN 1.7 g/dL (3.4-5.0); ALKALINE PHOSPHATASE 43 U/L (46-116); ALT (SGPT) 42 U/L (10-68); CALC OSMOLALITY 280 mosm/kg (275-300); CALCIUM 7.6 mg/dL (8.5-10.1); CARBON DIOXIDE 26.8 mmol/L (21.0-32.0); CHLORIDE - SERUM 103 mmol/L (98-107); CREATININE - SERUM 0.5 mg/dL (0.6-1.3); GLUCOSE 124 mg/dL (74-106); POTASSIUM - SERUM 4.1 mmol/L (3.5-5.1); PROTEIN - SERUM 5.1 g/dL (6.4-8.2); SODIUM 138 mmol/L (136-145); UREA NITROGEN 24 mg/dL (7-18); eGFR NON AFRICAN AMERICAN > 90 mL/min (90-120)
[2017-08-15 08:15] VITALS: BP 116/75
[2017-08-15 11:59] VITALS: BP 107/65
[2017-08-15 15:48] VITALS: BP 126/74
[2017-08-15 20:00] VITALS: BP 114/63
[2017-08-16 04:00] VITALS: BP 111/64
[2017-08-16 05:49] LABS: BASOPHILS 0 % (0-2); EOSINOPHILS 0 % (0-7); HEMATOCRIT 27.5 % (42.0-54.0); HEMOGLOBIN 8.4 g/dL (13.5-17.5); IMMATURE GRANULOCYTES 1.5 % (0-5); LYMPHOCYTES 7.9 % (15-50); MCH 24.8 pg (26.0-34.0); MCHC 30.5 g/dL (31.0-37.0); MCV 81.1 fL (80.0-100.0); MEAN PLATELET VOLUME 10.9 fL (7.4-10.4); NEUTROPHILS 83.6 % (40-80); PLATELET COUNT 173 10x3/uL (130-400); RBC 3.39 10x6/uL (4.20-6.10); RDW 24.7 % (11.5-14.5); WBC 7.2 10x3/uL (4.8-10.8)
[2017-08-16 06:00] LABS: ALBUMIN 1.7 g/dL (3.4-5.0); ALKALINE PHOSPHATASE 40 U/L (46-116); ALT (SGPT) 43 U/L (10-68); BILIRUBIN - TOTAL 0.49 mg/dL (0.2-1.3); CALC OSMOLALITY 275 mosm/kg (275-300); CALCIUM 7.9 mg/dL (8.5-10.1); CARBON DIOXIDE 27.5 mmol/L (21.0-32.0); CHLORIDE - SERUM 105 mmol/L (98-107); CREATININE - SERUM 0.6 mg/dL (0.6-1.3); GLUCOSE 92 mg/dL (74-106); POTASSIUM - SERUM 3.8 mmol/L (3.5-5.1); PROTEIN - SERUM 4.9 g/dL (6.4-8.2); SODIUM 137 mmol/L (136-145); UREA NITROGEN 19 mg/dL (7-18); eGFR NON AFRICAN AMERICAN > 90 mL/min (90-120)
[2017-08-16 08:02] VITALS: BP 117/69
[2017-08-16 12:17] LABS: % SATURATION 30 % (15-55); IRON 53 ug/dl (35-150); TOTAL IRON BIND CAPACITY 175 ug/dl (260-445); UNSAT IRON BIND CAPACITY 122 ug/dl (150-375)
[2017-08-16 12:50] VITALS: BP 109/63
[2017-08-16 14:53] LABS: APPEARANCE HAZY (CLEAR); COLOR YELLOW (YELLOW); NITRITE NEGATIVE (NEGATIVE); PROTEIN TRACE mg/dL (NEGATIVE); SPECIFIC GRAVITY 1.015 (1.005-1.020)
[2017-08-16 14:54] LABS: BILIRUBIN NEGATIVE (NEGATIVE); GLUCOSE NEGATIVE (NEGATIVE); KETONE NEGATIVE (NEGATIVE); UROBILINOGEN NORMAL (NORMAL)
[2017-08-16 14:59] LABS: RED CELLS - URINE 0-5 /hpf (0-5); WHITE CELLS - URINE 0-5 /hpf (0-5)
[2017-08-16 15:00] LABS: BACTERIA FEW /hpf (NONE SEEN)
[2017-08-16 16:13] VITALS: BP 127/79
[2017-08-16 20:00] VITALS: BP 120/63
[2017-08-17] VITALS: BP 111/50
[2017-08-17 04:00] VITALS: BP 143/80
[2017-08-17 05:44] LABS: BASOPHILS 0.1 % (0-2); EOSINOPHILS 0 % (0-7); HEMATOCRIT 28.6 % (42.0-54.0); HEMOGLOBIN 8.6 g/dL (13.5-17.5); IMMATURE GRANULOCYTES 1.4 % (0-5); MCH 24.7 pg (26.0-34.0); MCHC 30.1 g/dL (31.0-37.0); MCV 82.2 fL (80.0-100.0); MEAN PLATELET VOLUME 11.1 fL (7.4-10.4); MONOCYTES 7.2 % (2-11); NEUTROPHILS 80.3 % (40-80); PLATELET COUNT 177 10x3/uL (130-400); RBC 3.48 10x6/uL (4.20-6.10); RDW 24.9 % (11.5-14.5); WBC 7.2 10x3/uL (4.8-10.8)
[2017-08-17 06:18] LABS: ALBUMIN 1.9 g/dL (3.4-5.0); ALKALINE PHOSPHATASE 41 U/L (46-116); BILIRUBIN - TOTAL 0.35 mg/dL (0.2-1.3); CALC OSMOLALITY 279 mosm/kg (275-300); CALCIUM 7.8 mg/dL (8.5-10.1); CARBON DIOXIDE 26.1 mmol/L (21.0-32.0); CHLORIDE - SERUM 106 mmol/L (98-107); CREATININE - SERUM 0.5 mg/dL (0.6-1.3); GLUCOSE 121 mg/dL (74-106); POTASSIUM - SERUM 3.7 mmol/L (3.5-5.1); PROTEIN - SERUM 4.6 g/dL (6.4-8.2); SODIUM 138 mmol/L (136-145); UREA NITROGEN 21 mg/dL (7-18); eGFR NON AFRICAN AMERICAN > 90 mL/min (90-120)
[2017-08-17 06:19] LABS: ALT (SGPT) 74 U/L (10-68)
[2017-08-17 07:31] LABS: FOLATE (FOLIC ACID) - SERUM 11.2 ng/mL (>3.0)
[2017-08-17 07:58] VITALS: BP 110/66
[2017-08-17] MEDS ORDERED: NYSTATIN ORAL SU5 ML PO (10:27)
[2017-08-17] MEDS ORDERED: ELIQUIS5 MG PO (10:28)
[2017-08-17] MEDS ORDERED: ATROVENT 0.02%2.5 ML UPD (10:28)
[2017-08-17] MEDS ORDERED: XOPENEX 0.0.63 MG/3 UPD (10:28)
[2017-08-17] MEDS ORDERED: ACETAMINOPHEN500 M1 PO (10:29)
[2017-08-17] MEDS ORDERED: LASIX40 MG PO (10:29)
[2017-08-17] MEDS ORDERED: PROTONIX40 MG PO (10:30)
[2017-08-17] MEDS ORDERED: K-DUR20 MEQ PO (10:30)
[2017-08-17] MEDS ORDERED: PREDNISONE20 MG PO (10:31)
[2017-08-17] MEDS ORDERED: MELATONIN 3 MG1 TAB PO (10:31)
[2017-08-17] MEDS ORDERED: LEVAQUIN500 MG PO (10:36)
== END 2017-08-17 18:33 | DRG 175 ==
LOC: D.ER 12:59 → D.EDHOLD 18:42 → D.ER 18:42 → D.MS 21:33 → D.ICU 21:33 → D.MS 08-09 20:10
PROVIDERS: Emergency Medicine; Internal Medicine Nephrology; Internal Medicine Pulmonary Disease
DX: I26.99 Other pulmonary embolism without acute cor pulmonale (principal); J96.21 Acute and chronic respiratory failure with hypoxia; E43 Unspecified severe protein-calorie malnutrition; J44.1 Chronic obstructive pulmonary disease with (acute) exacerbation; J98.11 Atelectasis; I50.9 Heart failure, unspecified; I25.10 Atherosclerotic heart disease of native coronary artery without angina pectoris; J84.10 Pulmonary fibrosis, unspecified; D50.9 Iron deficiency anemia, unspecified; I27.20 Pulmonary hypertension, unspecified; Z86.73 Personal history of transient ischemic attack (TIA), and cerebral infarction without residual deficits; Z95.1 Presence of aortocoronary bypass graft; Z87.891 Personal history of nicotine dependence; K21.9 Gastro-esophageal reflux disease without esophagitis; K44.9 Diaphragmatic hernia without obstruction or gangrene; R13.10 Dysphagia, unspecified; N40.0 Benign prostatic hyperplasia without lower urinary tract symptoms; J84.112 Idiopathic pulmonary fibrosis; Z68.20 Body mass index [BMI] 20.0-20.9, adult

== ENCOUNTER 2017-08-17 16:37 | Inpatient (IN) | payer MEDICARE, OTHER ==
[~2017-08-17] VITALS: Ht 175.3 cm; Wt 1883.8 kg
--- NOTE | ~2017-08-17 | RHP ---
PATIENT: DIANA SOLARES MEDICAL RECORD: [id number] ACCOUNT: [id number] LOCATION:[id number] : 37 ADMISSION DATE: 08/17/17 REHABILITATION HISTORY AND PHYSICAL EXAMINATION POST ADMISSION PHYSICIAN EXAMINATION DATE OF ADMISSION: 08/17/2017. ADMITTING DIAGNOSES: Critical illness myopathy HISTORY OF PRESENT ILLNESS: The patient is a 81-year-old gentleman admitted secondary to critical illness myopathy. He was recently on the acute inpatient rehab and he went into acute respiratory distress requiring 8 liters oxymizer oxygen via nasal cannula. He had to be discharged back to the acute hospitalist. He had a pulmonary consult workup. He had been followed during his acute hospital stay. He is found to have bilateral PEs and has been receiving blood thinners. He continues to have shortness of breath requiring 4 liters of oxygen via nasal cannula. This began to be weaned. He has history of CHF. He had a history of iron dependent infusions, coronary artery disease status post coronary artery bypass grafting, COPD, skin carcinoma, gastroesophageal reflux disease, prostate problems. Recently he had urinary retention, renal lithiasis, and a TIA. He has got a history of smoking, but quit 25 years ago. Recently, he also had the flu. He has got a history of COPD for the past 3-4 years, but has been hospitalized on a monthly basis since March with bronchiectasis and pneumonia. He has had proximal muscle weakness noted with difficulty rising from bed to chair. He is on telemetry. He was living at home with his and was independent with ADLs and mobility prior to this. He is currently set up from max assist with ADLs, moderate to max assist for mobility. He has a strong family support system that is very active in his plan of care and planned to be involved in his acute rehab to get him back home, hopefully back to his prior level of functioning or better. COMORBIDITIES: In this patient include COPD, iron-deficient anemia, diffuse myopathy, pulmonary hypertension, pulmonary emboli, dysphagia, right lower lobe pneumonia, pulmonary hypertension, severe protein-calorie malnutrition, rlwnj-mq-[id number] hypoxic respiratory failure. He has got a history of dysphagia, renal lithiasis, debility, and benign prostatic hypertrophy. PAST MEDICAL HISTORY: Significant for TIA, cataract, CHF, COPD, coronary artery disease, skin cancer, constipation, former tobacco use but greater than 25 years ago, kidney stones, acid reflux, hernia, constipation, emphysema, home O2 dependence. PAST SURGICAL HISTORY: Includes coronary artery bypass grafting, kidney stones, and transurethral resection of the prostate. ALLERGIES: No known drug allergies. CURRENT MEDICATIONS: Include Mucinex D b.i.d., Lasix 40 mg daily, Proscar 5 mg daily, vitamin B12 1000 mcg daily, Pulmicort 0.5 mg b.i.d., Tessalon Perles 200 mg t.i.d., Brovana 15 mcg b.i.d., Eliquis 5 mg b.i.d., Tylenol 500 mg q.6 hours p.r.n., Daliresp 500 mcg daily, prednisone 40 mg daily, Protonix 40 mg daily, Levaquin 500 mg daily, Atrovent and ipratropium bromide updrafts. He is on potassium chloride 10 mEq daily, Flomax 0.4 q.h.s., polyethylene glycol 17 grams in 8 ounces of water daily, Nystatin suspension 5 cc q.i.d., Singulair 10 mg HISTORY AND PHYSICAL [id number] BECK,DIANA R q.h.s., metoprolol 37.5 mg b.i.d., melatonin 3 mg q.h.s. p.r.n., Megace 400 mg b.i.d., and Xopenex updrafts as needed. HABITS: No current alcohol or tobacco use. FAMILY HISTORY: Noncontributory. SOCIAL HISTORY: The patient hopes to return home and get back to his prior level of functioning. REVIEW OF SYSTEMS: GENERAL: Does complain of weakness and fatigue. HEENT: Denies cold, cough, or congestion. CARDIOVASCULAR: Denies chest pain. PHYSICAL EXAMINATION: VITAL SIGNS: Stable, afebrile. GENERAL: An elderly gentleman in no acute distress, alert upon exam. HEENT: Normocephalic and atraumatic. Mucosa moist. NECK: Supple, with no lymphadenopathy. LUNGS: Decreased breath sounds in both bases. CARDIOVASCULAR: Regular rate and rhythm. ABDOMEN: Benign. EXTREMITIES: No clubbing, cyanosis or edema. NEUROLOGIC: Seems intact. LABORATORY DATA: His white count is 8.2, H&H of 9 and 30, and platelet count was 214. Sodium 138, potassium 3.8, BUN and creatinine of 19 and 0.5, and blood sugar is noted to be 90. ASSESSMENT: This is a 81-year-old gentleman admitted to the rehab with a working diagnosis of critical illness myopathy. The patient seems to make improvement. We instituted the following multidisciplinary therapies including to, but not limited to physical, occupational, respiratory, speech, nutritional services, prosthetics and orthotics. Given his complex medical condition and risk for more complications, rehabilitation services cannot be provided at a low level of care such as penitentiary facility. PLAN: 1. Admit to [facility] rehab for intensive inpatient therapy to include the following disciplines: A. Physical therapy to improve gait, all transfer skills and bed mobility to a modified independent level. B. Occupational therapy to improve activities of daily living to modified independent level. C. Case management to assist with discharge planning and placement options. D. Nutrition to assist in nutritional needs. E. Rehabilitation nursing to assist in monitoring the patient's underlying medical conditions and to assist with any type of bowel or bladder management. 2. The patient's current medications and medical care will be continued. 3. The patient will be placed on standard fall precautions. 4. The patient's estimated length of stay is approximately 7-10 days. 5. Discuss this patient during care team staff meeting this week. I am going to follow him up on Monday morning or early if necessary. HISTORY AND PHYSICAL [id number] DIANA SOLARES TRANSINT:[id number] Voice Confirmation ID: [id number] DOCUMENT ID: [id number] BASILIO notes whether there has been none or any medical/functional change since admission: - No change since preadmission screen. BASILIO attests patient continues to be appropriate for IRF: - Continue to be appropriate. LUCA PUGH MD at 1139 CC: [id number] DICTATION DATE: 08/18/17 0853 SENIOR CONTROLLER: 08/18/17 1023 DIS IN 09/01/17 [facility] [address] [place] [id number]
--- NOTE | ~2017-08-17 | CN ---
PATIENT NAME:DIANA SOLARES MEDICAL RECORD: [id number] : 39 LOCATION:[id number] ADMIT DATE: 08/17/17 ACCOUNT: [id number] CONSULTING PHYSICIAN: LEANDRO MORIN MD REFERRING PHYSICIAN: GURJIT BURNETTE MD DATE OF CONSULTATION: 08/22/2017 Pulmonary Consultation CONSULT REQUESTING PHYSICIAN: Dr. Gurjit Burnette. REASON FOR CONSULTATION: Dyspnea. HISTORY OF PRESENT ILLNESS: Mr. Solares is a 81-year-old gentleman, very well known to me. According to the daughter, if the patient was given albuterol nebulizer and he will get shaky and feels like he has worsening shortness of breath. This was changed to Xopenex and now, he is feeling a lot better. His oxygen has been decreased from 4 liters to 3 liters. Denies any fever or chills, no night sweats. There is no orthopnea, no PND. He does have some pedal edema. REVIEW OF SYSTEMS: Mainly in the history of present illness. PAST MEDICAL HISTORY: 1. CHF. 2. COPD. 3. Recent pulmonary embolism. 4. Recent flu. 5. Gastroesophageal reflux disease. 6. Coronary artery disease. 7. History of TIA. 8. History of skin cancer. PAST SURGICAL HISTORY: 1. He has a CABG. 2. He has surgery for kidney stone. 3. TURP 5 years ago. ALLERGIES: There are no known drug allergies. MEDICATIONS: On Février 48 was reviewed. PERSONAL AND SOCIAL HISTORY: The patient is an ex-smoker. He is a nondrinker. FAMILY HISTORY: Significant for cardiovascular disease. PHYSICAL EXAMINATION: GENERAL: Now, the patient is lying comfortably in bed. He is not in acute respiratory distress. VITAL SIGNS: The temperature is 97.8, pulse is 116, respiratory rate 17-18, blood pressure is 109/56, SpO2 is 98% on 3 liters nasal cannula. HEENT: Conjunctivae are pink. Sclerae nonicteric. NECK: Supple, no JVD. CHEST: There are bilateral basal crackles. No wheezing. HEART: Rhythm regular, normal sound, no murmur. CONSULT REPORT [id number] DIANA SOLARES ABDOMEN: Soft, bowel sounds present. No hepatosplenomegaly. RECTAL: Deferred. EXTREMITIES: No cyanosis, no clubbing. There is pedal edema. CENTRAL NERVOUS SYSTEM: The patient is awake and alert. There is no obvious cranial nerve abnormality. The gait was not tested. CHEST RADIOGRAPH: There are bibasilar atelectases. There are no acute infiltrate. The chest x-ray is unchanged compared to the previous chest radiograph. LABORATORY DATA: CBC: WBC on 08/21/2017, was 10.6, hemoglobin was 9.7 and hematocrit was 32.6, and platelet count 209. Chemistry today: Sodium is 140, potassium 3.5, BUN is 21, creatinine 0.6. IMPRESSION: 1. Dyspnea on exertion, which is multifactorial. 2. Chronic hypoxic respiratory failure that has been improving. His oxygen requirement has decreased from 4 liters to 3 liters. 3. Congestive heart failure, most likely chronic systolic dysfunction. 4. Recent pulmonary embolism. 5. Pneumonia. This has been resolving, the chest radiograph is stable. 6. Gastroesophageal reflux disease. RECOMMENDATION: 1. I will increase the Lasix to 40 mg b.i.d. 2. Add ipratropium to Xopenex nebulizer. Continue the Brovana, budesonide nebulizer, finished a course of Levaquin. 3. Taper a dose of prednisone. 4. Continue Eliquis 5 mg b.i.d. 5. Follow up on labs and chest radiograph in the morning. Dr. Gurjit Burnette, thank you for involving me in the care of Mr. Solares. Discussed with the patient's daughter. TRANSINT:[id number] Voice Confirmation ID: [id number] DOCUMENT ID: [id number] LEANDRO MORIN MD at 1340 CC: GURJIT BURNETTE [id number] DICTATION DATE: 08/22/17 1738 HORSE TREKKING GUIDE: 08/22/17 1950 DIS IN 09/01/17 [facility] [address] [place] [address]
--- NOTE | ~2017-08-17 | DS ---
PATIENT:DIANA SOLARES :39 MEDICAL RECORD: [id number] DISCHARGE SUMMARY ADMISSION DATE: 08/17/17 DISCHARGE DATE: 09/01/17 This is a discharge dated 09/01/2017 from the inpatient hospital. PRIMARY DIAGNOSIS: Decreased functional ability and ability to provide activities of daily living secondary to critical illness myopathy. SECONDARY DIAGNOSES: 1. Ykoob-ig-rjmsxno hypoxic respiratory failure. 2. Bilateral pulmonary emboli. 3. Congestive heart failure. 4. Coronary artery disease. 5. COPD. 6. Gastroesophageal reflux disease. 7. Iron deficiency anemia. 8. Pulmonary hypertension. 9. Dysphagia. 10. Right lower lobe pneumonia. 11. Severe protein-calorie malnutrition. 12. Renal lithiasis. 13. Hypokalemia. 14. Hiatal hernia. CONSULTS THIS HOSPITALIZATION: Pulmonary with Dr. Correia. HOSPITAL COURSE: Full H&P is located elsewhere on the chart on this 81-year-old male who was admitted to inpatient rehab for physical therapy and occupational therapy to improve gait, transfer skills, bed mobility, and activities of daily living to a modified independent level. He was evaluated by PT and OT and their plans of care were followed. He required [facility] care for observation and assessment and medication administration. He was on nebulized medications for respiratory support, remained on supplemental oxygen to keep sats greater than 90%. Electrolytes were managed by protocol. He was on Eliquis for anticoagulation with bilateral PEs. Pulmonary was consulted for recommendations related to increasing respiratory rate. Chest x-ray was without acute changes. He was seen by Dr. Correia and Dr. Evans. Prednisone was tapered. No other changes were made. It was felt that he was stable from a pulmonary standpoint. He was cooperative with therapies, progressing towards goals. Case management was involved for discharge planning. He was considered stable for discharge on 09/01/2017. DISCHARGE MEDICATIONS: As per discharge medication reconciliation. DISCHARGE DISPOSITION: The patient is discharged home. He will continue his current diet and level of activity. He will follow up with primary care and specialists as directed. At least 30 minutes was spent in this discharge activity. TRANSINT:[id number] Voice Confirmation ID: [id number] DOCUMENT ID: [id number] Dictated By: THOM POLK DISCHARGE SUMMARY REPORT [id number] JASMINE SOLARESKia Troncoso have interviewed/examined the above patient and agree with these documented findings. LUCA PUGH MD at 1344 at 1344 CC: [id number] DICTATION DATE: 09/17/17 1845 BATTER DEPOSITOR: 09/18/17 0152 DIS IN 09/01/17 [place] [id number] [place] [id number]
[~2017-08-17 16:37] MED LIST changes: +ACETAMINOPHEN500 M1 PO; +ATROVENT 0.02%2.5 ML UPD; +ELIQUIS5 MG PO; +LASIX40 MG PO; +LEVAQUIN500 MG PO; +MELATONIN 3 MG1 TAB PO; +NYSTATIN ORAL SU5 ML PO; +PROTONIX40 MG PO; +XOPENEX 0.0.63 MG/3 UPD
[2017-08-17 22:31] VITALS: BP 138/75; BMI 615.0
[2017-08-18 07:05] LABS: BASOPHILS 0.1 % (0-2); EOSINOPHILS 0 % (0-7); MCH 24.9 pg (26.0-34.0); MCV 82.9 fL (80.0-100.0); MONOCYTES 9.6 % (2-11); NEUTROPHILS 74.3 % (40-80); RBC 3.62 10x6/uL (4.20-6.10); RDW 25.2 % (11.5-14.5); WBC 8.2 10x3/uL (4.8-10.8)
[2017-08-18 07:06] LABS: PLATELET COUNT 214 10x3/uL (130-400)
[2017-08-18 07:07] LABS: CALC OSMOLALITY 277 mosm/kg (275-300); CALCIUM 8.5 mg/dL (8.5-10.1); CARBON DIOXIDE 26.4 mmol/L (21.0-32.0); CHLORIDE - SERUM 106 mmol/L (98-107); CREATININE - SERUM 0.5 mg/dL (0.6-1.3); GLUCOSE 90 mg/dL (74-106); POTASSIUM - SERUM 3.8 mmol/L (3.5-5.1); SODIUM 138 mmol/L (136-145); UREA NITROGEN 19 mg/dL (7-18); eGFR NON AFRICAN AMERICAN > 90 mL/min (90-120)
[2017-08-18 09:12] VITALS: BP 104/60
[2017-08-18 12:31] VITALS: Ht 175.3 cm; Wt 1883.8 kg
[2017-08-18 23:31] VITALS: BP 121/66
[2017-08-19 08:34] VITALS: BP 125/61
[2017-08-19 20:05] VITALS: BP 118/70
[2017-08-20 07:59] VITALS: BP 112/65
[2017-08-20 19:25] VITALS: BP 130/72
[2017-08-21 06:31] LABS: BASOPHILS 0.1 % (0-2); EOSINOPHILS 0 % (0-7); HEMATOCRIT 32.6 % (42.0-54.0); HEMOGLOBIN 9.7 g/dL (13.5-17.5); IMMATURE GRANULOCYTES 2.5 % (0-5); LYMPHOCYTES 10.5 % (15-50); MCH 24.9 pg (26.0-34.0); MCHC 29.8 g/dL (31.0-37.0); MCV 83.6 fL (80.0-100.0); MEAN PLATELET VOLUME 10.8 fL (7.4-10.4); MONOCYTES 5.9 % (2-11); PLATELET COUNT 209 10x3/uL (130-400); RDW 26.3 % (11.5-14.5); WBC 10.6 10x3/uL (4.8-10.8)
[2017-08-21 06:40] LABS: CALC OSMOLALITY 278 mosm/kg (275-300); CALCIUM 8.5 mg/dL (8.5-10.1); CARBON DIOXIDE 27.9 mmol/L (21.0-32.0); CHLORIDE - SERUM 104 mmol/L (98-107); CREATININE - SERUM 0.6 mg/dL (0.6-1.3); GLUCOSE 95 mg/dL (74-106); POTASSIUM - SERUM 3.8 mmol/L (3.5-5.1); SODIUM 138 mmol/L (136-145); UREA NITROGEN 22 mg/dL (7-18); eGFR NON AFRICAN AMERICAN > 90 mL/min (90-120)
[2017-08-21 07:47] VITALS: BP 127/69
[2017-08-21 20:00] VITALS: BP 123/67
[2017-08-22 08:50] VITALS: BP 109/56
[2017-08-22 09:57] LABS: CALC OSMOLALITY 282 mosm/kg (275-300); CALCIUM 7.8 mg/dL (8.5-10.1); CARBON DIOXIDE 28.4 mmol/L (21.0-32.0); CHLORIDE - SERUM 105 mmol/L (98-107); CREATININE - SERUM 0.6 mg/dL (0.6-1.3); GLUCOSE 114 mg/dL (74-106); POTASSIUM - SERUM 3.5 mmol/L (3.5-5.1); PRO BNP 657 pg/mL (0-450); SODIUM 140 mmol/L (136-145); UREA NITROGEN 21 mg/dL (7-18); eGFR NON AFRICAN AMERICAN > 90 mL/min (90-120)
[2017-08-22 23:08] VITALS: BP 134/79
[2017-08-23 06:28] LABS: BASOPHILS 0.2 % (0-2); EOSINOPHILS 0 % (0-7); HEMATOCRIT 32.2 % (42.0-54.0); HEMOGLOBIN 9.8 g/dL (13.5-17.5); IMMATURE GRANULOCYTES 1.1 % (0-5); LYMPHOCYTES 11.9 % (15-50); MCH 25.9 pg (26.0-34.0); MCHC 30.4 g/dL (31.0-37.0); MCV 85.2 fL (80.0-100.0); MEAN PLATELET VOLUME 10.2 fL (7.4-10.4); MONOCYTES 8.1 % (2-11); NEUTROPHILS 78.7 % (40-80); PLATELET COUNT 180 10x3/uL (130-400); RBC 3.78 10x6/uL (4.20-6.10); RDW 26.2 % (11.5-14.5); WBC 6.3 10x3/uL (4.8-10.8)
[2017-08-23 06:38] LABS: CALC OSMOLALITY 280 mosm/kg (275-300); CALCIUM 7.9 mg/dL (8.5-10.1); CARBON DIOXIDE 26.4 mmol/L (21.0-32.0); CHLORIDE - SERUM 106 mmol/L (98-107); CREATININE - SERUM 0.5 mg/dL (0.6-1.3); GLUCOSE 96 mg/dL (74-106); MAGNESIUM - SERUM 2.2 mg/dL (1.8-2.4); POTASSIUM - SERUM 3.5 mmol/L (3.5-5.1); SODIUM 139 mmol/L (136-145); UREA NITROGEN 20 mg/dL (7-18); eGFR NON AFRICAN AMERICAN > 90 mL/min (90-120)
[2017-08-23 09:12] VITALS: BP 121/63
[2017-08-23 19:35] VITALS: BP 113/74
[2017-08-24 05:42] LABS: BASOPHILS 0.1 % (0-2); EOSINOPHILS 0.1 % (0-7); HEMATOCRIT 33.8 % (42.0-54.0); HEMOGLOBIN 10.1 g/dL (13.5-17.5); IMMATURE GRANULOCYTES 0.8 % (0-5); LYMPHOCYTES 12.1 % (15-50); MCH 25.6 pg (26.0-34.0); MCHC 29.9 g/dL (31.0-37.0); MCV 85.8 fL (80.0-100.0); MEAN PLATELET VOLUME 10.5 fL (7.4-10.4); NEUTROPHILS 77.9 % (40-80); PLATELET COUNT 183 10x3/uL (130-400); RBC 3.94 10x6/uL (4.20-6.10); RDW 25.9 % (11.5-14.5); WBC 7.1 10x3/uL (4.8-10.8)
[2017-08-24 06:08] LABS: CALC OSMOLALITY 284 mosm/kg (275-300); CALCIUM 7.9 mg/dL (8.5-10.1); CARBON DIOXIDE 25.9 mmol/L (21.0-32.0); CHLORIDE - SERUM 106 mmol/L (98-107); CREATININE - SERUM 0.7 mg/dL (0.6-1.3); GLUCOSE 100 mg/dL (74-106); MAGNESIUM - SERUM 2.2 mg/dL (1.8-2.4); POTASSIUM - SERUM 3.6 mmol/L (3.5-5.1); SODIUM 141 mmol/L (136-145); UREA NITROGEN 25 mg/dL (7-18); eGFR NON AFRICAN AMERICAN > 90 mL/min (90-120)
[2017-08-24 08:00] VITALS: BP 116/73
[2017-08-24 21:46] VITALS: BP 135/72
[2017-08-25 06:10] LABS: BASOPHILS 0 % (0-2); EOSINOPHILS 0.3 % (0-7); HEMATOCRIT 34.7 % (42.0-54.0); HEMOGLOBIN 10.4 g/dL (13.5-17.5); LYMPHOCYTES 13.5 % (15-50); MCH 25.6 pg (26.0-34.0); MCV 85.3 fL (80.0-100.0); MEAN PLATELET VOLUME 10.7 fL (7.4-10.4); MONOCYTES 7.8 % (2-11); NEUTROPHILS 77.4 % (40-80); PLATELET COUNT 183 10x3/uL (130-400); RBC 4.07 10x6/uL (4.20-6.10); RDW 25.5 % (11.5-14.5); WBC 6.8 10x3/uL (4.8-10.8)
[2017-08-25 06:24] LABS: CALC OSMOLALITY 283 mosm/kg (275-300); CALCIUM 7.8 mg/dL (8.5-10.1); CARBON DIOXIDE 26.9 mmol/L (21.0-32.0); CHLORIDE - SERUM 104 mmol/L (98-107); CREATININE - SERUM 0.6 mg/dL (0.6-1.3); GLUCOSE 95 mg/dL (74-106); MAGNESIUM - SERUM 2.1 mg/dL (1.8-2.4); POTASSIUM - SERUM 3.2 mmol/L (3.5-5.1); SODIUM 140 mmol/L (136-145); UREA NITROGEN 26 mg/dL (7-18); eGFR NON AFRICAN AMERICAN > 90 mL/min (90-120)
[2017-08-25 08:09] VITALS: BP 111/64
[2017-08-25 20:43] VITALS: BP 124/69
[2017-08-26 06:56] LABS: BASOPHILS 0.1 % (0-2); EOSINOPHILS 0.2 % (0-7); HEMATOCRIT 35.2 % (42.0-54.0); HEMOGLOBIN 10.6 g/dL (13.5-17.5); IMMATURE GRANULOCYTES 0.9 % (0-5); LYMPHOCYTES 10.8 % (15-50); MCH 25.7 pg (26.0-34.0); MCHC 30.1 g/dL (31.0-37.0); MCV 85.2 fL (80.0-100.0); PLATELET COUNT 181 10x3/uL (130-400); RBC 4.13 10x6/uL (4.20-6.10); RDW 25.3 % (11.5-14.5)
[2017-08-26 07:08] LABS: CALC OSMOLALITY 283 mosm/kg (275-300); CALCIUM 8.4 mg/dL (8.5-10.1); CARBON DIOXIDE 28.6 mmol/L (21.0-32.0); CHLORIDE - SERUM 104 mmol/L (98-107); CREATININE - SERUM 0.6 mg/dL (0.6-1.3); GLUCOSE 90 mg/dL (74-106); MAGNESIUM - SERUM 2.1 mg/dL (1.8-2.4); POTASSIUM - SERUM 3.1 mmol/L (3.5-5.1); SODIUM 140 mmol/L (136-145); UREA NITROGEN 27 mg/dL (7-18); eGFR NON AFRICAN AMERICAN > 90 mL/min (90-120)
[2017-08-26 09:01] VITALS: BP 114/76
[2017-08-27 01:20] VITALS: BP 116/69
[2017-08-27 06:01] LABS: BASOPHILS 0.2 % (0-2); EOSINOPHILS 0.3 % (0-7); HEMATOCRIT 35.8 % (42.0-54.0); HEMOGLOBIN 10.8 g/dL (13.5-17.5); IMMATURE GRANULOCYTES 1.2 % (0-5); LYMPHOCYTES 15.9 % (15-50); MCH 26.1 pg (26.0-34.0); MCHC 30.2 g/dL (31.0-37.0); MCV 86.5 fL (80.0-100.0); MONOCYTES 9.7 % (2-11); NEUTROPHILS 72.7 % (40-80); PLATELET COUNT 162 10x3/uL (130-400); RBC 4.14 10x6/uL (4.20-6.10); RDW 25.3 % (11.5-14.5)
[2017-08-27 06:04] LABS: WBC 6.5 10x3/uL (4.8-10.8)
[2017-08-27 06:20] LABS: CALC OSMOLALITY 281 mosm/kg (275-300); CALCIUM 8.9 mg/dL (8.5-10.1); CARBON DIOXIDE 29.3 mmol/L (21.0-32.0); CHLORIDE - SERUM 105 mmol/L (98-107); CREATININE - SERUM 0.6 mg/dL (0.6-1.3); GLUCOSE 97 mg/dL (74-106); MAGNESIUM - SERUM 2.1 mg/dL (1.8-2.4); POTASSIUM - SERUM 3.7 mmol/L (3.5-5.1); SODIUM 139 mmol/L (136-145); UREA NITROGEN 24 mg/dL (7-18); eGFR NON AFRICAN AMERICAN > 90 mL/min (90-120)
[2017-08-27 09:48] VITALS: BP 185/83
[2017-08-28 00:48] VITALS: BP 130/70
[2017-08-28 07:12] LABS: BASOPHILS 0 % (0-2); EOSINOPHILS 0.3 % (0-7); HEMATOCRIT 37.1 % (42.0-54.0); IMMATURE GRANULOCYTES 1.5 % (0-5); LYMPHOCYTES 18.3 % (15-50); MCH 25.9 pg (26.0-34.0); MCHC 29.6 g/dL (31.0-37.0); MCV 87.5 fL (80.0-100.0); MONOCYTES 9.9 % (2-11); PLATELET COUNT 173 10x3/uL (130-400); RBC 4.24 10x6/uL (4.20-6.10); RDW 25.2 % (11.5-14.5)
[2017-08-28 07:27] LABS: CALC OSMOLALITY 285 mosm/kg (275-300); CALCIUM 8.3 mg/dL (8.5-10.1); CARBON DIOXIDE 28.1 mmol/L (21.0-32.0); CHLORIDE - SERUM 105 mmol/L (98-107); CREATININE - SERUM 0.6 mg/dL (0.6-1.3); GLUCOSE 92 mg/dL (74-106); POTASSIUM - SERUM 3.8 mmol/L (3.5-5.1); SODIUM 141 mmol/L (136-145); UREA NITROGEN 27 mg/dL (7-18); eGFR NON AFRICAN AMERICAN > 90 mL/min (90-120)
[2017-08-28 08:00] VITALS: BP 122/70
[2017-08-28 19:30] VITALS: BP 124/78
[2017-08-29 08:17] VITALS: BP 103/63
[2017-08-29 18:50] LABS: APPEARANCE CLEAR (CLEAR); BILIRUBIN NEGATIVE (NEGATIVE); COLOR YELLOW (YELLOW); GLUCOSE NEGATIVE (NEGATIVE); KETONE NEGATIVE (NEGATIVE); NITRITE NEGATIVE (NEGATIVE); PROTEIN NEGATIVE (NEGATIVE); UROBILINOGEN NORMAL (NORMAL)
[2017-08-29 19:56] VITALS: BP 114/70
[2017-08-30 07:33] LABS: BASOPHILS 0.1 % (0-2); EOSINOPHILS 0.7 % (0-7); HEMATOCRIT 38.2 % (42.0-54.0); HEMOGLOBIN 11.5 g/dL (13.5-17.5); IMMATURE GRANULOCYTES 0.6 % (0-5); LYMPHOCYTES 16.3 % (15-50); MCH 26.2 pg (26.0-34.0); MCHC 30.1 g/dL (31.0-37.0); MEAN PLATELET VOLUME 10.3 fL (7.4-10.4); MONOCYTES 8.3 % (2-11); PLATELET COUNT 180 10x3/uL (130-400); RBC 4.39 10x6/uL (4.20-6.10); RDW 24.5 % (11.5-14.5); WBC 6.9 10x3/uL (4.8-10.8)
[2017-08-30 07:49] LABS: CALC OSMOLALITY 286 mosm/kg (275-300); CALCIUM 8.2 mg/dL (8.5-10.1); CARBON DIOXIDE 29.1 mmol/L (21.0-32.0); CHLORIDE - SERUM 104 mmol/L (98-107); CREATININE - SERUM 0.6 mg/dL (0.6-1.3); GLUCOSE 97 mg/dL (74-106); POTASSIUM - SERUM 3.5 mmol/L (3.5-5.1); SODIUM 142 mmol/L (136-145); UREA NITROGEN 25 mg/dL (7-18); eGFR NON AFRICAN AMERICAN > 90 mL/min (90-120)
[2017-08-30 08:00] VITALS: BP 112/67
[2017-08-30 20:10] VITALS: BP 116/67
[2017-08-31 08:11] VITALS: BP 98/61
[2017-08-31] MEDS ORDERED: ONCOLOGY MOUTHWA5 ML PO (09:11)
[2017-08-31 20:52] VITALS: BP 107/66
[2017-09-01 08:56] VITALS: BP 101/60
== END 2017-09-01 12:30 | disposition home health service (06) | DRG 91 ==
LOC: D.REHAB 16:37
PROVIDERS: Emergency Medicine; Internal Medicine Pulmonary Disease
DX: G72.81 Critical illness myopathy (principal); J96.21 Acute and chronic respiratory failure with hypoxia; E43 Unspecified severe protein-calorie malnutrition; J18.9 Pneumonia, unspecified organism; I26.99 Other pulmonary embolism without acute cor pulmonale; I50.22 Chronic systolic (congestive) heart failure; J44.0 Chronic obstructive pulmonary disease with (acute) lower respiratory infection; J44.1 Chronic obstructive pulmonary disease with (acute) exacerbation; D50.9 Iron deficiency anemia, unspecified; I27.20 Pulmonary hypertension, unspecified; R13.10 Dysphagia, unspecified; N40.0 Benign prostatic hyperplasia without lower urinary tract symptoms; R00.0 Tachycardia, unspecified

== ENCOUNTER → 2018-03-12 12:28 | Outpatient (CLI) | payer MEDICARE, OTHER ==
[2017-08-18 12:31] VITALS: BMI 613.7
[~2018-03-12 12:28] MED LIST changes: +ONCOLOGY MOUTHWA5 ML PO
== END | disposition home or self-care (01) ==
LOC: D.RT 12:28
DX: J44.9 Chronic obstructive pulmonary disease, unspecified (principal); J18.9 Pneumonia, unspecified organism

== ENCOUNTER → 2018-03-29 09:27 | Outpatient (CLI) | payer MEDICARE, OTHER ==
[2017-08-18 12:31] VITALS: BMI 613.7
== END | disposition home or self-care (01) ==
LOC: D.US 09:27
DX: R60.0 Localized edema (principal)

== ENCOUNTER → 2019-07-01 07:04 | Outpatient (CLI) | payer MEDICARE, OTHER ==
[2017-08-18 12:31] VITALS: BMI 613.7
--- NOTE | ~2019-07-01 | EC ---
PATIENT:DIANA SOLARES DATE OF SERVICE: 07/01/19 SEX: M MEDICAL RECORD: [id number] DATE OF : 39 LOCATION:D.RT AGE OF PATIENT: 83 ADMISSION DATE: 07/01/19 REFERRING PHYSICIAN: INTERPRETING PHYSICIAN: SERGIO BROWN MD ECHOCARDIOGRAM REPORT ECHO CHARGES 4 ECHO COMPLETE Date: 07/01/19 CLINICAL DIAGNOSIS: PULMONARY HTN ECHOCARDIOGRAPHIC MEASUREMENTS (adult normal given) AC root (d.<3.7cm) 3.2 cm LV Septum d (<1.2 cm> 1.0 cm Valve Excursion 1.7 cm LV Septum (systole) 1.3 cm Left Atria (s.<4.0cm> 3.0 cm LVPW d(<1.2cm) 1.0 cm RV (d.<2.3cm) 2.6 cm LVPW (sytole) 1.1 cm LV diastole(<5.6CM) 3.8 cm MV E-F(>70mm/sec) cm LV systole 2.9 cm LVOT Diameter 1.7 cm MV exc.(>10mm) cm Est.ejection fraction (50-75%) % DOPPLER: LVIT cm/sec A 79 cm/sec E 59 cm/sec LA cm/sec RVSP 45.0 mmHg LVOT 107 cm/sec AOP1/2T m/s Asc. Ao 104 cm/sec RVOT 62 cm/sec RA cm/sec PA 82 cm/sec AV Gradient Peak 4.4 mmHg AV Mean 2.4 mmHg AV Area 1.9 cm MV Gradient Peak 5.5 mmHg MV Mean 3.2 mmHg MV Area cm COMMENTS: French Pastry Cook: Miki [facility] Flame Brazing Machine Operator: 3 Dr. Melendez TAPE# PACS Pericardial Effusion Y DATE OF SERVICE: Adequate 2D, color flow imaging, spectral Doppler study and M-Mode. No LVH. LV internal dimension is normal. Wall motion is normal. EF is greater than or equal to 55%. Aortic valve is tricuspid. No evidence of stenosis by Doppler interrogation. Left atrium is normal. Mitral valve shows no prolapse. Trace MR. Right-sided chambers are grossly normal. Trace TR. TRANSINT:[id number] Voice Confirmation ID: [id number] DOCUMENT ID: [id number] ECHOCARDIOGRAM REPORT [id number] DIANA SOLARES SERGIO BROWN MD CC: [id number] DICTATION DATE: 07/02/19 1250 SALES REPRESENTATIVE WIRE ROPE: 07/02/19 1453 DEP CLI 07/01/19 [place] [id number] [place] [address]
== END | disposition home or self-care (01) ==
LOC: D.RT 05-17 11:00
PROVIDERS: ATTEND Internal Medicine Pulmonary Disease
DX: J44.9 Chronic obstructive pulmonary disease, unspecified (principal); I27.21 Secondary pulmonary arterial hypertension